=== PATIENT | male | born 1950 | race Caucasian/White ===

== ENCOUNTER 2021-06-07 09:21 | Outpatient (CLI) | payer MEDICARE, SELFPAY ==
--- NOTE | 2021-06-07 09:31 | CT_ITS ---
WS: [id number] LDCT LUNG CANCER SCREENING TECHNIQUE: Noncontrast CT of the chest with coronal and sagittal reformatted images. CLINICAL INFORMATION: NICOTINE DEPENDENCE,CIGARETTES COMPARISON: None. DLP: 56.17 mGy.cm DIvol: 1.[address] scans at [facility] use at least one of these dose optimization techniques: automat ed exposure control; mA and/or kV adjustment per patient size (includes targeted exams where dose is matched to clinical indication); or iterative reconstruction. FINDINGS: Mild chronic emphysematous changes. Fibrosis in the lung apices. Coronary calcification. Calcified gr anuloma left lower lobe. Slight hazy groundglass subpleural opacities more prominent in the upper lob es. No other suspicious pulmonary parenchymal opacities. Prominent hypertrophic changes thoracic spin e with prominent protruding osteophytes. CT/CT lung screening [id number] IMPRESSION:Slight hazy groundglass subpleural opacities more prominent in the u pper lobes likely infectious or inflammatory. LUNG-RADS: 2S-Benign Appearance or Behavior with Significant Findings FOLLOW UP: 12 Month: Continue annual screening with LDCT
== END 2021-06-07 09:22 | disposition home or self-care (01) ==
LOC: RAD 09:29
PROVIDERS: PCP Internal Medicine; Visit Provider Family Medicine
DX: Z12.2 Encounter for screening for malignant neoplasm of respiratory organs (principal); F17.210 Nicotine dependence, cigarettes, uncomplicated
CPT/HCPCS: 71271

== ENCOUNTER 2023-08-05 14:09 | Outpatient (CLI) | payer MEDICARE, SELFPAY ==
--- NOTE | 2023-08-05 14:15 | CT_ITS ---
WS: [id number] LDCT LUNG CANCER SCREENING HISTORY: NICOTINE DEPENDENCE, CIGARETTES TECHNIQUE: Axial imaging performed from the apices to 1 cm below the costophrenic angles. Coronal and sagittal reformats are submitted with axial MIP series. All CT scans at [facility] use at least one of these dose optimization techniques: automated exposure control; mA and/or kV adjustment per patient size (includes targeted exams where dose is matched to clinical indication); or iterativ e reconstruction. DLP: 66.79 mGy.cm DIvol: Mean CTDIvol: 1.10 (mGy) COMPARISON: 06/07/2021 Diagnostic quality: Satisfactory Lungs: Biapical pleural thickening and scarring. Biapical pleural thickening and tethering with taggi ng. Stable. Calcified granuloma LEFT lower lobe. No mass or pulmonary nodule. No endobronchial lesion s. Heart: Normal size heart with no pericardial effusion.. Moderate to severe coronary artery calcificat ion. Other findings: No adenopathy. Mild atherosclerosis aorta. Mild LEFT adrenal hyperplasia. Hypertrophi c changes within the thoracic spine. IMPRESSION: CT/CT lung screening [id number] LUNG-RADS: 2-Benign Appearance or Behavior FOLLOW UP: 12 Month: Continue annual screening with LDCT OTHER FINDINGS (S MODIFIER): None.
== END 2023-08-05 14:10 | disposition home or self-care (01) ==
LOC: RAD 14:09
PROVIDERS: PCP Internal Medicine; Visit Provider Family Medicine
DX: Z12.2 Encounter for screening for malignant neoplasm of respiratory organs (principal); F17.210 Nicotine dependence, cigarettes, uncomplicated
CPT/HCPCS: 71271

== ENCOUNTER 2024-09-02 13:53 | Outpatient (CLI) | payer MEDICARE, SELFPAY ==
--- NOTE | 2024-09-02 14:02 | CT_ITS ---
WS: [id number] LDCT LUNG CANCER SCREENING TECHNIQUE: Noncontrast CT of the chest with coronal and sagittal reformatted images. CLINICAL INFORMATION: NICOTINE DEPENDENCE, CIGARETTES COMPARISON: CT 2022 DLP: 59.41 mGy.cm DIvol: Mean CTDIvol: 1.10 (mGy) All CT scans at [facility] use at least one of these dose optimization techniques: automat ed exposure control; mA and/or kV adjustment per patient size (includes targeted exams where dose is matched to clinical indication); or iterative reconstruction. FINDINGS: Fibrosis at the lung apices. Biapical pleural thickening is similar to previous. Calcified granuloma LEFT lower lobe. No new suspicious pulm parenchymal opacities. Dense coronary artery calcification.No mediastinal or hilar lymphadenopathy. Mild aortic calcificatio n. LEFT adrenal thickening/hyperplasia unchanged. Prominent anterior atrophic changes thoracic spine compatible with DISH. Mild thoracic kyphosis. Splenic artery calcification. CT/CT lung screening [id number] IMPRESSION: LUNG-RADS: 2-Benign Appearance or Behavior FOLLOW UP: 12 Month: Continue annual screening with LDCT
== END 2024-09-02 13:54 | disposition home or self-care (01) ==
LOC: RAD 13:55
PROVIDERS: PCP Internal Medicine; Visit Provider Physician Assistant
DX: Z12.2 Encounter for screening for malignant neoplasm of respiratory organs (principal); F17.210 Nicotine dependence, cigarettes, uncomplicated; J84.10 Pulmonary fibrosis, unspecified; I70.0 Atherosclerosis of aorta; E27.8 Other specified disorders of adrenal gland; R93.7 Abnormal findings on diagnostic imaging of other parts of musculoskeletal system; D73.89 Other diseases of spleen
CPT/HCPCS: 71271

== ENCOUNTER 2024-09-07 16:12 | Emergency (ER) | payer MEDICARE, SELFPAY ==
[2024-09-07 16:14] VITALS: BP 98/52; PULSE 96; RESP 24; TEMP 36.3; O2SAT 92; BMI 21.9
--- NOTE | 2024-09-07 16:58 | CTR_ITS ---
PROCEDURE INFORMATION: Exam: CT Abdomen And Pelvis With Contrast Exam date and time: 09/07/2024 7:37 PM Age: 73 years old Clinical indication: Abdominal pain; Generalized; Additional info: Abd pain TECHNIQUE: Imaging protocol: Computed tomography of the abdomen and pelvis with contrast. Radiation optimization: All CT scans at this facility use at least one of these dose optimization techniques: automated exposure control; mA and/or kV adjustment per patient size (includes targeted exams where dose is matched to clinical indication); or iterative reconstruction. Contrast material: OMNIPAQUE 350; Contrast volume: 100 ml; Contrast route: INTRAVENOUS (IV); COMPARISON: CR XR hip RT 2-3V wo/w pel* [id number] 09/04/2023 8:41 AM RADIATION DOSE METRICS: Total DLP (mGy-cm): 778.93 FINDINGS: Liver: Hepatic steatosis. Gallbladder and biliary ducts: Normal. No calcified stones. No ductal dilation. Pancreas: Normal. No ductal dilation. Spleen: Normal. No splenomegaly. Adrenal glands: Normal. No mass. Kidneys and ureters: Right kidney cysts, negative for follow-up advised. Right kidney nonobstructing calyceal stones. Horseshoe kidney. Stomach and bowel: Diverticulosis without diverticulitis. Appendix: No evidence of appendicitis. Intraperitoneal space: Unremarkable. No free air. No significant fluid collection. Vasculature: Scattered aortic atherosclerotic plaque. Proximal bilateral renal artery atherosclerotic calcifications with 80-90% luminal narrowing. Extensive common, internal, and external iliac artery atherosclerotic calcification with areas of greater than 90% luminal narrowing suspected. 3.4 cm fusiform infrarenal abdominal aortic aneurysm. Lymph nodes: Unremarkable. No enlarged lymph nodes. Urinary bladder: Urinary bladder wall thickening likely due to nondistention, please correlate for cystitis. Reproductive: Nodular prostate gland enlargement indenting the base urinary bladder, please correlate clinically. Bones/joints: Unremarkable. No acute fracture. Soft tissues: Small bilateral fat containing inguinal hernias. CT/CT abdomen pelvis w con* [id number] IMPRESSION: 1. Urinary bladder wall thickening likely due to nondistention, please correlate for cystitis. 2. Scattered aortic atherosclerotic plaque. 3. Proximal bilateral renal artery atherosclerotic calcifications with 80-90% luminal narrowing. 4. Hepatic steatosis. 5. Right kidney cysts, negative for follow-up advised. 6. Right kidney nonobstructing calyceal stones. 7. Horseshoe kidney. 8. Diverticulosis without diverticulitis. 9. Nodular prostate gland enlargement indenting the base urinary bladder, please correlate clinically. 10. Small bilateral fat containing inguinal hernias. 11. Extensive common, internal, and external iliac artery atherosclerotic calcification with areas of greater than 90% luminal narrowing suspected. 12. 3.4 cm fusiform infrarenal abdominal aortic aneurysm.
--- NOTE | 2024-09-07 17:28 | ED_ITS ---
Documented by User: Sergio Elena DO 09/08/24 16:54 HPI - Nausea/Vomiting/Diarrhea 2 General: Chief complaint: Nausea/Vomiting/Diarrhea Stated complaint: abd pain Time Seen by Provider: 09/07/24 16:57 History of Present Illness: 73-year-old male presents emergency room with nausea and vomiting with abdominal pain he said for the last 3 days he had some bright red blood in his stools no hematemesis or coffee-ground emesis no black stools. Does have a history of previous GI bleed about a year ago. He does not drink any alcohol. He is complaining of generalized abdominal pain and generalized myalgias throughout he has not had a cough or a fever at home. No previous abdominal surgeries Associated nausea: Yes Associated symtoms: Reports nausea; Denies chest pain or dysuria Related Data Previous Rx's Medication Instructions Recorded ciprofloxacin HCl 500 mg tablet 500 mg PO BID #20 tabs 09/07/24 Allergies Allergy/AdvReac Type Severity Reaction Status Date / Time No Known Allergies Allergy Verified 09/07/24 16:24 Review of Systems 2 Const: Denies: fever(s) or chills Card: Denies: chest pain Resp: Denies: dyspnea GI: Reports: abdominal pain, nausea, vomiting and hematochezia; Denies: hematemesis, coffee ground emesis or melena : Denies: dysuria, urinary frequency or urinary urgency Musc: Denies: neck pain or back pain Skin/Breast: Denies: rash Physical Exam 2 Const: GENERAL APPEARANCE: cooperative ORIENTATION/CONSCIOUSNESS: Yes awake, Yes oriented to person, Yes oriented to place and Yes oriented to time HENMT: COMMON NORMALS: normocephalic, atraumatic and hearing grossly normal bilaterally HEAD & SCALP: normocephalic and atraumatic Resp: COMMON NORMALS: normal respiratory effort, No retractions, No use of accessory muscles and clear to auscultation bilaterally AUSCULTATION: clear to auscultation bilaterally Cardio: COMMON NORMALS: regular rate, regular rhythm and No murmurs present (Cardio) RATE: regular rate RHYTHM: regular rhythm GI: COMMON NORMALS: No hepatosplenomegaly present AUSCULTATION: Yes normoactive bowel sounds PALPATION: Yes Tenderness to palpation present (GI) (Generalized), No Guarding due to palpation present (GI) and Yes No hepatosplenomegaly present Extremity: COMMON NORMALS: normal to inspection, capillary refill normal, no clubbing, cyanosis or edema, no calf tenderness and no pedal edema Neuro: SENSORIUM/ORIENTATION: Yes oriented to person, Yes oriented to place and Yes oriented to time Skin: COMMON NORMALS: no rashes or lesions noted GENERAL SKIN EXAM: no rashes or lesions noted Course 2 Vital Signs: Vital signs: Vital Signs Temperature 97.4 F L 09/07/24 16:14 Pulse Rate 98 09/07/24 21:13 Respiratory Rate 22 H 09/07/24 21:13 Blood Pressure 159/81 09/07/24 21:13 Pulse Oximetry 96 09/07/24 21:13 Oxygen Delivery Me thod Room Air 09/07/24 19:25 MDM - Nausea/Vomiting/Diarrhea Medical Decision Making Care signed out to Dr. Stevenson at change of shift. See final notes for diagnosis and disposition. Lab Data 09/07/24 18:35 09/07/24 18:35 Radiology Impressions Abdomen/Pelvis CT 09/07/24 16:58 IMPRESSION: 1. Urinary bladder wall thickening likely due to nondistention, please correlate for cystitis. 2. Scattered aortic atherosclerotic plaque. 3. Proximal bilateral renal artery atherosclerotic calcifications with 80-90% luminal narrowing. 4. Hepatic steatosis. 5. Right kidney cysts, negative for follow-up advised. 6. Right kidney nonobstructing calyceal stones. 7. Horseshoe kidney. 8. Diverticulosis without diverticulitis. 9. Nodular prostate gland enlargement indenting the base urinary bladder, please correlate clinically. 10. Small bilateral fat containing inguinal hernias. 11. Extensive common, internal, and external iliac artery atherosclerotic calcification with areas of greater than 90% luminal narrowing suspected. 12. 3.4 cm fusiform infrarenal abdominal aortic aneurysm. Laboratory Results WBC 16.92 10^3/uL (3.29-11.43) H 09/07/24 18:35 RBC 4.88 10^6/uL (3.85-5.65) 09/07/24 18:35 Hgb 14.50 g/dL (11.27-16.99) 09/07/24 18:35 Hct 44.0 % (37-53) 09/07/24 18:35 MCV 90.2 fl (82-101) 09/07/24 18:35 MCH 29.7 pg (27-33) 09/07/24 18:35 MCHC 33.0 g/dL (30-55) 09/07/24 18:35 RDW 12.9 % (12.1-15.1) 09/07/24 18:35 Plt Count 262 10^3/cmm (157-399) 09/07/24 18:35 MPV 10.5 fL (7.4-10.4) H 09/07/24 18:35 Neut % (Auto) 84.3 % 09/07/24 18:35 Lymph % (Auto) 7.1 % 09/07/24 18:35 Cobb % (Auto) 7.7 % 09/07/24 18:35 Eos % (Auto) 0.1 % 09/07/24 18:35 Baso % (Auto) 0.2 % 09/07/24 18:35 Neut # (Auto) 14.27 10^3/uL (1.8-7.7) H 09/07/24 18:35 Lymph # (Auto) 1.2 10^3/uL (0.8-4.8) 09/07/24 18:35 Cobb # (Auto) 1.3 10^3/uL (0.2-0.9) H 09/07/24 18:35 Eos # (Auto) 0.0 10^3/uL (0.0-0.8) 09/07/24 18:35 Baso # (Auto) 0.0 10^3/uL (0.0-0.1) 09/07/24 18:35 Nucleated RBC % (auto) 0 % 09/07/24 18:35 Nucleated RBCs # 0.0 /100WBC 09/07/24 18:35 PT 13.10 SECONDS (12.1-14.9) 09/07/24 18:35 INR 0.96 (0.8-1.2) 09/07/24 18:35 APTT 25.0 SECONDS (23.9-36.7) 09/07/24 18:35 Sodium 141 mmol/L (136-145) 09/07/24 18:35 Potassium 3.9 mmol/L (3.5-5.1) 09/07/24 18:35 Chloride 107 mmol/L (98-107) 09/07/24 18:35 Carbon Dioxide 22 mmol/L (22-29) 09/07/24 18:35 Anion Gap 15.9 (5-19) 09/07/24 18:35 BUN 29 mg/dL (8-23) H 09/07/24 18:35 Creatinine 1.3 mg/dL (0.7-1.2) H 09/07/24 18:35 GFR Calculation Not Reportable 09/07/24 18:35 Glucose 149 mg/dL (65-115) H 09/07/24 18:35 Calculated Osmolality 301 mOsm/kg (285-295) H 09/07/24 18:35 Calcium 9.3 mg/dL (8.5-10.5) 09/07/24 18:35 Total Bilirubin 0.4 mg/dL (0.15-1.2) 09/07/24 18:35 AST 18 U/L (0-40) 09/07/24 18:35 ALT 20 U/L (0-41) 09/07/24 18:35 Alkaline Phosphatase 81 U/L (40-130) 09/07/24 18:35 Total Protein 6.8 g/dL (6.6-8.7) 09/07/24 18:35 Albumin 4.0 g/dL (3.5-5.2) 09/07/24 18:35 Globulin 2.8 g/dL (1.3-4.6) 09/07/24 18:35 Urine Color Yellow (Yellow) 09/07/24 20:47 Urine Appearance Cloudy (CLEAR) A 09/07/24 20:47 Urine pH 5.5 (5-7) 09/07/24 20:47 Ur Specific [place] 1.065 (1.005-1.030) H 09/07/24 20:47 Urine Protein 2+ (Negative) A 09/07/24 20:47 Urine Glucose (UA) Negative (Normal) 09/07/24 20:47 Urine Ketones Trace (Negative) 09/07/24 20:47 Urine Blood 2+ (Negative) A 09/07/24 20:47 Urine Nitrate Positive (Negative) A 09/07/24 20:47 Urine Bilirubin Negative (Negative) 09/07/24 20:47 Urine Urobilinogen 1.0 mg/dL (Negative) 09/07/24 20:47 Ur Leukocyte Esterase 1+ (Negative) A 09/07/24 20:47 Urine RBC 0-2 /hpf (0-2) 09/07/24 20:47 Urine WBC >100 /hpf (0-5) H 09/07/24 20:47 Ur Squamous Epith Cells 0-5 /hpf (0-5) 09/07/24 20:47 Amorphous Sediment Not Reportable 09/07/24 20:47 Urine Bacteria None seen /hpf (NONE) 09/07/24 20:47 Hyaline Casts 40.94 /lpf 09/07/24 20:47 Coronavirus (PCR) Negative (Negative) 09/07/24 18:29 Influenza A (PCR) Negative (Negative) 09/07/24 18:29 Influenza Type B (PCR) Negative (Negative) 09/07/24 18:29 RSV (PCR) Negative (Negative) 09/07/24 18:29 Discharge Plan Discharge Patient Disposition: Home Clinical Impression: Acute lower gastrointestinal bleeding, Peripheral vascular disease, Acquired renal artery stenosis, Acute UTI Condition: Stable Prescriptions: New ciprofloxacin HCl 500 mg tablet 500 mg PO BID Qty: 20 0RF Discharge Orders: Discharge ED (Routine); Ordered 09/07/24 Ordered By: Stewart Stevenson Referrals: Elder Mooney DO [Primary Care Provider] - 1-3 days Patient Instructions: Rectal Bleeding (ED), Opioid Safety, Pain Management Activity Restrictions/Additional Instructions: If you continue to have bleeding, you should have your blood count rechecked in 2 to 3 days. You should see your doctor for this. Return for fever, worsening abdominal pain, vomiting, passing increasing amounts of blood in the stool, other concerning symptoms. Case management has been asked to make an appointment for you with our cardiology clinic because of evidence of significant peripheral vascular disease on your CT scan. You should get a call from them this week. Coding Level of Care Code ED Repairer Kiln Car for Chg Fwd Documented by User: Stewart Stevenson DO 09/07/24 21:52 HPI - Nausea/Vomiting/Diarrhea 2 General: Chief complaint: Nausea/Vomiting/Diarrhea Stated complaint: abd pain Time Seen by Provider: 09/07/24 16:57 Related Data Previous Rx's Medication Instructions Recorded ciprofloxacin HCl 500 mg tablet 500 mg PO BID #20 tabs 09/07/24 Allergies Allergy/AdvReac Type Severity Reaction Status Date / Time No Known Allergies Allergy Verified 09/07/24 16:24 Course 2 Vital Signs: Vital signs: Vital Signs Temperature 97.4 F L 09/07/24 16:14 Pulse Rate 98 09/07/24 21:13 Respiratory Rate 22 H 09/07/24 21:13 Blood Pressure 159/81 09/07/24 21:13 Pulse Oximetry 96 09/07/24 21:13 Oxygen Delivery Me thod Room Air 09/07/24 19:25 MDM - Nausea/Vomiting/Diarrhea Medical Decision Making Care signed out to Dr. Stevenson at change of shift. See final notes for diagnosis and disposition. Patient has had no more bleeding from the rectum since he has been here. Hemoglobin is 15. White blood cell count is 17. His creatinine is 1.3. Other laboratories benign. CT has multiple chronic findings, no cause of GI bleeding identified. He does have significant peripheral vascular disease and renal artery stenosis. We will ask case management to make him a referral for cardiology regarding this and potentially vascular surgery. Without further bleeding, no cause identified, he will be deemed stable for discharge. If he continues to bleed at all, he will need his hemoglobin rechecked in 2 days. He knows this. Urinalysis came back. He has greater than 100 whites with nitrates in his urine. He will be treated for this. Lab Data 09/07/24 18:35 09/07/24 18:35 Radiology Impressions Abdomen/Pelvis CT 09/07/24 16:58 IMPRESSION: 1. Urinary bladder wall thickening likely due to nondistention, please correlate for cystitis. 2. Scattered aortic atherosclerotic plaque. 3. Proximal bilateral renal artery atherosclerotic calcifications with 80-90% luminal narrowing. 4. Hepatic steatosis. 5. Right kidney cysts, negative for follow-up advised. 6. Right kidney nonobstructing calyceal stones. 7. Horseshoe kidney. 8. Diverticulosis without diverticulitis. 9. Nodular prostate gland enlargement indenting the base urinary bladder, please correlate clinically. 10. Small bilateral fat containing inguinal hernias. 11. Extensive common, internal, and external iliac artery atherosclerotic calcification with areas of greater than 90% luminal narrowing suspected. 12. 3.4 cm fusiform infrarenal abdominal aortic aneurysm. Laboratory Results WBC 16.92 10^3/uL (3.29-11.43) H 09/07/24 18:35 RBC 4.88 10^6/uL (3.85-5.65) 09/07/24 18:35 Hgb 14.50 g/dL (11.27-16.99) 09/07/24 18:35 Hct 44.0 % (37-53) 09/07/24 18:35 MCV 90.2 fl (82-101) 09/07/24 18:35 MCH 29.7 pg (27-33) 09/07/24 18:35 MCHC 33.0 g/dL (30-55) 09/07/24 18:35 RDW 12.9 % (12.1-15.1) 09/07/24 18:35 Plt Count 262 10^3/cmm (157-399) 09/07/24 18:35 MPV 10.5 fL (7.4-10.4) H 09/07/24 18:35 Neut % (Auto) 84.3 % 09/07/24 18:35 Lymph % (Auto) 7.1 % 09/07/24 18:35 Cobb % (Auto) 7.7 % 09/07/24 18:35 Eos % (Auto) 0.1 % 09/07/24 18:35 Baso % (Auto) 0.2 % 09/07/24 18:35 Neut # (Auto) 14.27 10^3/uL (1.8-7.7) H 09/07/24 18:35 Lymph # (Auto) 1.2 10^3/uL (0.8-4.8) 09/07/24 18:35 Cobb # (Auto) 1.3 10^3/uL (0.2-0.9) H 09/07/24 18:35 Eos # (Auto) 0.0 10^3/uL (0.0-0.8) 09/07/24 18:35 Baso # (Auto) 0.0 10^3/uL (0.0-0.1) 09/07/24 18:35 Nucleated RBC % (auto) 0 % 09/07/24 18:35 Nucleated RBCs # 0.0 /100WBC 09/07/24 18:35 PT 13.10 SECONDS (12.1-14.9) 09/07/24 18:35 INR 0.96 (0.8-1.2) 09/07/24 18:35 APTT 25.0 SECONDS (23.9-36.7) 09/07/24 18:35 Sodium 141 mmol/L (136-145) 09/07/24 18:35 Potassium 3.9 mmol/L (3.5-5.1) 09/07/24 18:35 Chloride 107 mmol/L (98-107) 09/07/24 18:35 Carbon Dioxide 22 mmol/L (22-29) 09/07/24 18:35 Anion Gap 15.9 (5-19) 09/07/24 18:35 BUN 29 mg/dL (8-23) H 09/07/24 18:35 Creatinine 1.3 mg/dL (0.7-1.2) H 09/07/24 18:35 GFR Calculation Not Reportable 09/07/24 18:35 Glucose 149 mg/dL (65-115) H 09/07/24 18:35 Calculated Osmolality 301 mOsm/kg (285-295) H 09/07/24 18:35 Calcium 9.3 mg/dL (8.5-10.5) 09/07/24 18:35 Total Bilirubin 0.4 mg/dL (0.15-1.2) 09/07/24 18:35 AST 18 U/L (0-40) 09/07/24 18:35 ALT 20 U/L (0-41) 09/07/24 18:35 Alkaline Phosphatase 81 U/L (40-130) 09/07/24 18:35 Total Protein 6.8 g/dL (6.6-8.7) 09/07/24 18:35 Albumin 4.0 g/dL (3.5-5.2) 09/07/24 18:35 Globulin 2.8 g/dL (1.3-4.6) 09/07/24 18:35 Urine Color Yellow (Yellow) 09/07/24 20:47 Urine Appearance Cloudy (CLEAR) A 09/07/24 20:47 Urine pH 5.5 (5-7) 09/07/24 20:47 Ur Specific [place] 1.065 (1.005-1.030) H 09/07/24 20:47 Urine Protein 2+ (Negative) A 09/07/24 20:47 Urine Glucose (UA) Negative (Normal) 09/07/24 20:47 Urine Ketones Trace (Negative) 09/07/24 20:47 Urine Blood 2+ (Negative) A 09/07/24 20:47 Urine Nitrate Positive (Negative) A 09/07/24 20:47 Urine Bilirubin Negative (Negative) 09/07/24 20:47 Urine Urobilinogen 1.0 mg/dL (Negative) 09/07/24 20:47 Ur Leukocyte Esterase 1+ (Negative) A 09/07/24 20:47 Urine RBC 0-2 /hpf (0-2) 09/07/24 20:47 Urine WBC >100 /hpf (0-5) H 09/07/24 20:47 Ur Squamous Epith Cells 0-5 /hpf (0-5) 09/07/24 20:47 Amorphous Sediment Not Reportable 09/07/24 20:47 Urine Bacteria None seen /hpf (NONE) 09/07/24 20:47 Hyaline Casts 40.94 /lpf 09/07/24 20:47 Coronavirus (PCR) Negative (Negative) 09/07/24 18:29 Influenza A (PCR) Negative (Negative) 09/07/24 18:29 Influenza Type B (PCR) Negative (Negative) 09/07/24 18:29 RSV (PCR) Negative (Negative) 09/07/24 18:29 All radiology interpretation(s) finalized by discharge Discharge Plan Discharge Patient Disposition: Home Clinical Impression: Acute lower gastrointestinal bleeding, Peripheral vascular disease, Acquired renal artery stenosis, Acute UTI Condition: Stable Prescriptions: New ciprofloxacin HCl 500 mg tablet 500 mg PO BID Qty: 20 0RF Discharge Orders: Discharge ED (Routine); Ordered 09/07/24 Ordered By: Stewart Stevenson Referrals: Elder Mooney DO [Primary Care Provider] - 1-3 days Patient Instructions: Rectal Bleeding (ED), Opioid Safety, Pain Management Activity Restrictions/Additional Instructions: If you continue to have bleeding, you should have your blood count rechecked in 2 to 3 days. You should see your doctor for this. Return for fever, worsening abdominal pain, vomiting, passing increasing amounts of blood in the stool, other concerning symptoms. Case management has been asked to make an appointment for you with our cardiology clinic because of evidence of significant peripheral vascular disease on your CT scan. You should get a call from them this week. Coding Level of Care Code ED Repairer Kiln Car for Alysa Rene
[2024-09-07 18:59] LABS: Basophils % 0.2 %; Eosinophils % 0.1 %; Lymphocytes # 1.2 10^3/uL (0.8-4.8); Lymphocytes % 7.1 %; Mean Corpuscular Hemoglobin 29.7 pg (27-33); Mean Corpuscular Volume 90.2 fl (82-101); Mean Platelet Volume 10.5 fL (7.4-10.4); Monocytes # 1.3 10^3/uL (0.2-0.9); Monocytes % 7.7 %; Neutrophils # 14.27 10^3/uL (1.8-7.7); Neutrophils % 84.3 %; Nucleated Red Blood Cells % 0 %; Platelet Count 262 10^3/cmm (157-399); Red Blood Count 4.88 10^6/uL (3.85-5.65); Red Cell Distribution Width 12.9 % (12.1-15.1); White Blood Count 16.92 10^3/uL (3.29-11.43)
[2024-09-07 19:12] LABS: INR 0.96 (0.8-1.2)
[2024-09-07 19:17] LABS: Alanine Aminotransferase 20 U/L (0-41); Alkaline Phosphatase 81 U/L (40-130); Anion Gap 15.9 (5-19); Aspartate Amino Transferase 18 U/L (0-40); Blood Urea Nitrogen 29 mg/dL (8-23); Calcium 9.3 mg/dL (8.5-10.5); Carbon Dioxide 22 mmol/L (22-29); Chloride 107 mmol/L (98-107); Creatinine Clr Calc Pharmacy 59.7517; Globulin 2.8 g/dL (1.3-4.6); Glucose 149 mg/dL (65-115); Osmolality Calculated 301 mOsm/kg (285-295); Potassium 3.9 mmol/L (3.5-5.1); Sodium 141 mmol/L (136-145); Total Bilirubin 0.4 mg/dL (0.15-1.2); Total Protein 6.8 g/dL (6.6-8.7)
[2024-09-07 19:18] LABS: Covid PCR NEGATIVE (Negative); Influenza A NEGATIVE (Negative); Influenza B NEGATIVE (Negative); Respiratory Syncytial Virus Ce NEGATIVE (Negative)
[2024-09-07 19:25] VITALS: BP 115/82; PULSE 99; O2SAT 97
[2024-09-07] MEDS: iohexol 350 mg/mL 500 mL Btl (per mL) IV (19:40)
[2024-09-07 20:46] VITALS: PULSE 108; RESP 21
[2024-09-07 20:56] VITALS: BP 150/90
[2024-09-07 21:08] LABS: Bilirubin Urine Negative (Negative); Blood Urine 2+ (Negative); Glucose Urine UA Negative (Normal); Ketones Urine Trace (Negative); Leukocyte Esterase Urine 1+ (Negative); Nitrate Urine Positive (Negative); Protein Urine 2+ (Negative); Urine Appearance Cloudy (CLEAR); Urine Color Yellow (Yellow); pH Urine 5.5 (5-7)
[2024-09-07 21:13] VITALS: BP 159/81; PULSE 98; RESP 22; O2SAT 96
[2024-09-07 21:14] LABS: Add Urine Microscopic? YES; Bacteria Urine None Seen /hpf; Hyaline Casts Urine 40.94 /lpf; RBC Urine 0-2 /hpf (0-2); Squamous Epithelial Cell Urine 0-5 /hpf (0-5); WBC Urine >100 /hpf (0-5)
[2024-09-07 21:39] LABS: Add Urine Culture? Yes; Specific Gravity, Urine 1.065 (1.005-1.030)
--- NOTE | 2024-09-07 21:52 | PC.NURSE ---
Patient called by this nurse and informed that antibiotics have been sent in to [facility] pharmacy in [place] for a urinary tract infection.
--- NOTE | 2024-09-09 08:02 | DCPLANNER ---
Message sent to Cardiology for referral.
== END 2024-09-07 21:21 | disposition home or self-care (01) ==
PROVIDERS: Family Medicine; Emergency Provider Emergency Medicine; PCP Internal Medicine
DX: K92.2 Gastrointestinal hemorrhage, unspecified (principal); I73.9 Peripheral vascular disease, unspecified; I70.1 Atherosclerosis of renal artery; N39.0 Urinary tract infection, site not specified; Z11.52 Encounter for screening for COVID-19
CPT/HCPCS: 0241U; 36415; 74177; 80053; 81001; 85025; 85610; 85730; 87077; 87086; 87186; 99285

== ENCOUNTER → 2024-09-24 10:24 | Outpatient (BNVA) | payer MEDICARE, SELFPAY | PROVIDERS: PCP Physician Assistant; Visit Provider Internal Medicine | DX: R07.9 Chest pain, unspecified (principal); I73.9 Peripheral vascular disease, unspecified; I70.1 Atherosclerosis of renal artery | CPT/HCPCS: 80048; 93005; 99204 ==

== ENCOUNTER 2024-10-19 13:21 | Outpatient (CLI) | payer MEDICARE, SELFPAY ==
--- NOTE | 2024-10-19 13:45 | CTR_ITS ---
PROCEDURE INFORMATION: Exam: CTA Abdominal Aorta and Bilateral Lower Extremities (Run-off) With Contrast Exam date and time: 10/19/2024 1:39 PM Age: 74 years old Clinical indication: Numbness; Foot; Bilateral feet neuropathy; Additional info: Pad TECHNIQUE: Imaging protocol: Computed tomographic angiography of the of the abdominal aorta, pelvis and bilateral lower extremities with contrast. 3D rendering (Not supervised by radiologist): MIP and/or 3D reconstructed images were created by the technologist. Radiation optimization: All CT scans at this facility use at least one of these dose optimization techniques: automated exposure control; mA and/or kV adjustment per patient size (includes targeted exams where dose is matched to clinical indication); or iterative reconstruction. Contrast material: OMNIPAQUE 350; Contrast volume: 125 ml; Contrast route: INTRAVENOUS (IV); COMPARISON: CT abdomen pelvis w con* [id number] 09/07/2024 7:37 PM RADIATION DOSE METRICS: Total DLP (mGy-cm): 1616.24 FINDINGS: Aorta: There is severe calcific and noncalcific plaque in the abdominal aorta. There is a fusiform aneurysm of the infrarenal abdominal aorta measuring up to 3.5 x 3.0 cm. Celiac trunk and mesenteric arteries: Mild calcific plaque without stenosis at the celiac artery origin. Mild calcific and noncalcific plaque with less than 50% stenosis of the superior mesenteric artery origin. Inferior mesenteric artery is normal. Renal arteries: Moderate calcific and noncalcific plaque with less than 50% stenosis in the proximal right renal artery. Moderate calcific and noncalcific plaque with less than 50% stenosis in the proximal left renal artery. Right iliac arteries: Moderate calcific and noncalcific plaque with less than 50% stenosis in the right common iliac artery. Moderate predominantly noncalcific plaque in the right external iliac artery with less than 50% stenosis. Severe plaque in the right internal iliac artery with 50-60% stenosis at the origin. Right femoral/popliteal arteries: Moderate calcific and noncalcific plaque with less than 50% stenosis in the right common femoral artery. No stenosis in the right profunda femoris artery. Mild plaque with multifocal less than 50% stenosis in the mid to distal right superficial femoral artery. Mild plaque and no stenosis in the right popliteal artery. Right infrapopliteal arteries: Moderate right infrapopliteal arterial atherosclerotic disease with patent single vessel (posterior tibial artery) runoff to the right foot. Left iliac arteries: Moderate calcific and noncalcific plaque with less than 50% stenosis in the left external iliac artery. Left internal iliac artery is occluded proximally. Left femoral/popliteal arteries: Mild plaque with less than 50% stenosis in the left common femoral artery. No stenosis in the left profunda femoris artery. Mild plaque with multifocal less than 50% stenosis in the mid to distal left superficial femoral artery. There is focal 50-60% stenosis in the left superficial femoral artery at the proximal aspect of Bryan's canal. Mild plaque without stenosis in the left popliteal artery. Left infrapopliteal arteries: Moderate atherosclerotic disease with 2 vessel (posterior tibial and anterior tibial artery) runoff to the left foot. Lungs: Lung bases are clear. Liver: The liver is normal. Gallbladder and biliary ducts: The gallbladder is normal. There is no biliary dilation. Pancreas: The pancreas is unremarkable. Spleen: Heterogeneous splenic parenchymal enhancement pattern likely related to arterial phase contrast enhancement. Adrenal glands: The adrenal glands are hypertrophic bilaterally. 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 There is a stable 6.9 cm simple right renal cyst. There are nonobstructive stones in the right kidney. The largest stone measures 10 mm and the smaller stones measure 1-2 mm. There is no hydronephrosis or ureteral dilation. No stones on the left. Stomach and bowel: The stomach is nondistended, limiting assessment of wall thickness. The small bowel is nondilated. There is severe pancolonic diverticulosis. No sign of diverticulitis. Appendix: The appendix is normal. Urinary bladder: The urinary bladder is decompressed, preventing meaningful evaluation of wall thickness. Reproductive: There is nonspecific moderate enlargement of the prostate gland. Intraperitoneal space: There is no free air or significant intraperitoneal free fluid. Lymph nodes: There is no lymphadenopathy in the retroperitoneum, mesentery, pelvis or inguinal regions. Bones/joints: There is moderate degenerative disease in the lumbar spine. There is mild degenerative disease of both hips. The bony pelvis is intact. 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 Small left knee effusion. Soft tissues: Soft tissues in the lower extremities are unremarkable. There are small bilateral fat containing inguinal hernias. CT/CT angio abd aorta runof [id number] IMPRESSION: 1. 3.5 cm fusiform aneurysm of the infrarenal abdominal aorta. Recommend follow-up imaging in 2 years. 2. No hemodynamically significant visceral arterial stenosis. 3. Less than 50% stenosis in right common, external iliac, and superficial femoral arteries. 4. Moderate right infrapopliteal arterial atherosclerotic disease with patent single vessel runoff to the right foot. 5. Less than 50% stenosis in left common and external iliac arteries. 6. 50-60% focal stenosis in the left superficial femoral artery. 7. Moderate left infrapopliteal arterial atherosclerotic disease with patent 2 vessel runoff to the left foot. 8. Chronically occluded left internal iliac artery and hemodynamically significant stenosis in the proximal right internal iliac artery. 9. Incidental findings above.
[2024-10-19] MEDS: iohexol 350 mg/mL 500 mL Btl (per mL) IV (13:52)
== END 2024-10-19 13:22 | disposition home or self-care (01) ==
LOC: RAD 13:23
PROVIDERS: PCP Physician Assistant; Visit Provider Internal Medicine
DX: I73.9 Peripheral vascular disease, unspecified (principal); I70.0 Atherosclerosis of aorta; I71.43 Infrarenal abdominal aortic aneurysm, without rupture; K55.1 Chronic vascular disorders of intestine; I70.8 Atherosclerosis of other arteries; I70.1 Atherosclerosis of renal artery; R93.89 Abnormal findings on diagnostic imaging of other specified body structures; N28.1 Cyst of kidney, acquired; R93.421 Abnormal radiologic findings on diagnostic imaging of right kidney; R93.422 Abnormal radiologic findings on diagnostic imaging of left kidney; N20.0 Calculus of kidney; K57.30 Diverticulosis of large intestine without perforation or abscess without bleeding; N40.0 Benign prostatic hyperplasia without lower urinary tract symptoms; R93.49 Abnormal radiologic findings on diagnostic imaging of other urinary organs; M47.896 Other spondylosis, lumbar region; M16.0 Bilateral primary osteoarthritis of hip; M17.12 Unilateral primary osteoarthritis, left knee; M25.462 Effusion, left knee; K40.21 Bilateral inguinal hernia, without obstruction or gangrene, recurrent
CPT/HCPCS: 75635

== ENCOUNTER → 2024-11-06 12:37 | Outpatient (BNVA) | payer MEDICARE, SELFPAY | PROVIDERS: PCP Physician Assistant; Visit Provider Internal Medicine | DX: I73.9 Peripheral vascular disease, unspecified (principal); I70.1 Atherosclerosis of renal artery; F17.200 Nicotine dependence, unspecified, uncomplicated | CPT/HCPCS: 99214 ==

== ENCOUNTER 2024-11-12 07:48 | Outpatient (CLI) | payer MEDICARE, SELFPAY ==
[2024-11-12 08:16] LABS: Chol HDL Ratio 4.56 mg/dL (1.0-5.00); Cholesterol 178 mg/dL (0-200); HDL Cholesterol 39 mg/dL (60-100); LDL Cholesterol Calculated 107 mg/dL (50-129); LDL HDL Ratio 2.74 RATIO (0.00-3.22); Triglycerides 162 mg/dL (0-150)
== END 2024-11-12 07:49 | disposition home or self-care (01) ==
LOC: LAB 07:49
PROVIDERS: PCP Physician Assistant; Visit Provider Internal Medicine
DX: E78.5 Hyperlipidemia, unspecified (principal); I73.9 Peripheral vascular disease, unspecified
CPT/HCPCS: 36415; 80061

== ENCOUNTER 2025-02-09 07:30 | Outpatient (CLI) | payer MEDICARE, SELFPAY ==
--- NOTE | 2025-02-09 07:36 | MR_ITS ---
WS: [id number] MRI HEAD WITH CONTRAST TECHNIQUE: Sagittal T1, T2 axial, T2 axial FLAIR, axial susceptibility weighted imaging, axial diffusion weighted images, and coronal T2 images were obtained. Pre and post-T1 axial and post T1 coronal images. ADC and FSPGR images. CLINICAL INFORMATION: MILD COGNITIVE IMPAIRMENT COMPARISON: None. FINDINGS: No evidence of restricted diffusion to suggest acute ischemia. Moderate small vessel changes with moderate parenchymal volume loss. Small vessel changes in the gregg. Normal posterior fossa. Normal vascular flow voids at the skull base. No extra-axial fluid collections. Retention cyst RIGHT maxillary sinus. Mastoid air cells are well aerated. No hemosiderin. No abnormal gadolinium enhancement. MR/MR head wo/w con [id number] IMPRESSION: 1. No evidence of restricted diffusion to suggest acute ischemia. 2. Moderate small vessel changes with moderate parenchymal volume loss. Small vessel changes in the gregg. 3. No hemosiderin on susceptibility-weighted images. 4. Mild to moderate symmetric atrophy temporal lobes hippocampal formations. 5. No abnormal gadolinium enhancement.
[2025-02-09] MEDS: gadobenate dimeglumine 20 mL vial IV (08:27)
== END 2025-02-09 07:31 | disposition home or self-care (01) ==
LOC: RAD 07:34
PROVIDERS: PCP Physician Assistant; Visit Provider Physician Assistant
DX: G31.89 Other specified degenerative diseases of nervous system (principal); R93.0 Abnormal findings on diagnostic imaging of skull and head, not elsewhere classified; M27.40 Unspecified cyst of jaw
CPT/HCPCS: 70553

== ENCOUNTER 2025-03-01 13:45 | Oncology outpatient (recurring) (ONCR) | payer MEDICARE, SELFPAY | END 2025-03-15 23:59 | disposition home or self-care (01) | PROVIDERS: PCP Physician Assistant; Visit Provider Internal Medicine Medical Oncology | DX: D47.2 Monoclonal gammopathy (principal); R03.0 Elevated blood-pressure reading, without diagnosis of hypertension; G62.9 Polyneuropathy, unspecified; F17.210 Nicotine dependence, cigarettes, uncomplicated | CPT/HCPCS: 99205 ==

== ENCOUNTER 2025-06-28 13:49 | Outpatient (CLI) | payer MEDICARE, SELFPAY ==
[2025-06-28 14:24] LABS: Hematocrit 46.3 % (37-53); Hemoglobin 15.00 g/dL (11.27-16.99); Mean Corpuscular HGB Conc 32.4 g/dL (30-55); Mean Corpuscular Hemoglobin 28.8 pg (27-33); Mean Corpuscular Volume 88.9 fl (82-101); Nucleated Red Blood Cells % 0 %; Platelet Count 321 10^3/cmm (157-399); Red Blood Count 5.21 10^6/uL (3.85-5.65); White Blood Count 12.51 10^3/uL (3.29-11.43)
[2025-06-28 14:41] LABS: Alanine Aminotransferase 22 U/L (0-41); Albumin Level 4.6 g/dL (3.5-5.2); Alkaline Phosphatase 127 U/L (40-130); Anion Gap 17.9 (5-19); Aspartate Amino Transferase 17 U/L (0-40); Blood Urea Nitrogen 22 mg/dL (8-23); Calcium 10.0 mg/dL (8.5-10.5); Carbon Dioxide 24 mmol/L (22-29); Chloride 104 mmol/L (98-107); Globulin 2.8 g/dL (1.3-4.6); Glucose 95 mg/dL (65-115); Osmolality Calculated 297 mOsm/kg (285-295); Potassium 3.9 mmol/L (3.5-5.1); Sodium 142 mmol/L (136-145); Total Protein 7.4 g/dL (6.6-8.7)
[2025-06-29 08:14] LABS: PROTEIN, TOTAL 7.3 g/dL (6.1-8.1)
[2025-06-29 14:04] LABS: KAPPA LIGHT CHAIN, FREE, SERUM 50.6 mg/L (3.3-19.4); KAPPA/LAMBDA LIGHT CHAINS FREE 1.40 (0.26-1.65); LAMBDA LIGHT CHAIN, FREE, SERU 36.2 mg/L (5.7-26.3)
== END 2025-06-28 13:50 | disposition home or self-care (01) ==
LOC: LAB 13:50
PROVIDERS: PCP Physician Assistant; Visit Provider Internal Medicine Medical Oncology
DX: D47.2 Monoclonal gammopathy (principal)
CPT/HCPCS: 36415; 80053; 83883; 84155; 84165; 85025; 86334

== ENCOUNTER 2025-06-30 09:10 | Outpatient (CLI) | payer MEDICARE, SELFPAY ==
[2025-07-01 08:00] LABS: Protein/Creatinine Ratio 0.169 (<0.100); Protein/Creatinine Ratio 169 mg/g creat (<100)
[2025-07-01 16:35] LABS: ALPHA-1-GLOBULINS 0 %; ALPHA-2-GLOBULINS 0 %; BETA GLOBULINS 0 %; GAMMA GLOBULINS 0 %
== END 2025-06-30 09:11 | disposition home or self-care (01) ==
PROVIDERS: PCP Physician Assistant; Visit Provider Internal Medicine Medical Oncology
DX: D47.2 Monoclonal gammopathy (principal)
CPT/HCPCS: 82570; 84166; 86335

== ENCOUNTER 2025-07-05 12:37 | Oncology outpatient (recurring) (ONCR) | payer MEDICARE, SELFPAY | END 2025-07-16 23:59 | disposition home or self-care (01) | PROVIDERS: PCP Physician Assistant; Visit Provider Nurse Practitioner Family | DX: D47.2 Monoclonal gammopathy (principal); R03.0 Elevated blood-pressure reading, without diagnosis of hypertension; F17.210 Nicotine dependence, cigarettes, uncomplicated; Z71.6 Tobacco abuse counseling | CPT/HCPCS: 99214 ==

== ENCOUNTER → 2025-07-29 13:06 | Outpatient (BNVA) | payer MEDICARE, SELFPAY | PROVIDERS: PCP Physician Assistant; Visit Provider Internal Medicine | DX: I73.9 Peripheral vascular disease, unspecified (principal); I70.1 Atherosclerosis of renal artery; F17.200 Nicotine dependence, unspecified, uncomplicated | CPT/HCPCS: 99214 ==

== ENCOUNTER 2025-09-06 09:12 | Outpatient (CLI) | payer MEDICARE, SELFPAY ==
--- NOTE | 2025-09-06 09:18 | CT_ITS ---
WS: [id number] LDCT LUNG CANCER SCREENING HISTORY: NICOTINE DEPENDENCE, CIGARETTES TECHNIQUE: Axial imaging performed from the apices to 1 cm below the costophrenic angles. Coronal and sagittal reformats are submitted with axial MIP series. All CT scans at [facility] use at least one of these dose optimization techniques: automated exposure control; mA and/or kV adjustment per patient size (includes targeted exams where dose is matched to clinical indication); or iterative reconstruction. DLP: 74.30 mGy.cm DIvol: Mean CTDIvol: 1.40 (mGy) COMPARISON: 09/02/2024 Diagnostic quality: Satisfactory. Lungs: Stable biapical pulmonary fibrosis. Mild hyperexpansion. Benign calcified granuloma LEFT lower lobe. No mass or nodule. No endobronchial lesions. Heart: Normal size heart with no pericardial effusion.. Dense coronary artery calcifications most significant burden in the LEFT anterior descending and the coronary artery. Other findings: Mild atherosclerosis aorta. Normal size aorta. Stable thickening of the LEFT adrenal gland. Suspect there is probably a small adenoma present. No progression. Advanced calcification of the splenic artery. Transverse colon diverticulosis. Thoracic kyphosis and hypertrophic osteophytes. CT/CT lung screening [id number] IMPRESSION: LUNG-RADS: 2-Benign Appearance or Behavior FOLLOW UP: 12 Month: Continue annual screening with LDCT OTHER FINDINGS (S MODIFIER): None.
== END 2025-09-06 09:13 | disposition home or self-care (01) ==
LOC: RAD 09:13
PROVIDERS: PCP Physician Assistant; Visit Provider Physician Assistant
DX: Z12.2 Encounter for screening for malignant neoplasm of respiratory organs (principal); F17.210 Nicotine dependence, cigarettes, uncomplicated; J84.10 Pulmonary fibrosis, unspecified; J98.4 Other disorders of lung; I25.84 Coronary atherosclerosis due to calcified coronary lesion; I70.0 Atherosclerosis of aorta; E27.9 Disorder of adrenal gland, unspecified; R91.8 Other nonspecific abnormal finding of lung field
CPT/HCPCS: 71271